=== PATIENT | male | born 1980 | race Two or more races ===

== ENCOUNTER 2022-12-08 09:27 | Emergency (ER) | payer MEDICAID ==
[~2022-12-08] VITALS: Ht 190.5 cm; Wt 101.0 kg
[2022-12-08 10:06] LABS: Urine Bacteria NONE SEEN /hpf (None Seen); Urine Blood Negative /uL (Negative); Urine WBC <1 /hpf (0 - 3)
[2022-12-08 10:12] LABS: Basophils # (auto) 0.1 10 ^3/uL (0-0.2); Basophils % (auto) 1.1 % (0.0-2.0); Eosinophils # (auto) 0.2 10 ^3/uL (0-0.8); Eosinophils % (auto) 3.4 % (0.0-7.0); Hematocrit 44.3 % (41.0-53.0); Lymphocytes # (auto) 2.5 10 ^3/uL (0.4-5.4); Lymphocytes % (auto) 38.8 % (10.0-50.0); Mean Corpuscular Hemoglobin 28.4 pg (28.0-32.0); Mean Corpuscular Hgb Conc. 33.9 g/dL (32.0-36.0); Mean Corpuscular Volume 83.8 fL (80.0-100.0); Monocytes # (auto) 0.3 10 ^3/uL (0-1.3); Monocytes % (auto) 4.5 % (0.0-12.0); Neutrophils # (auto) 3.3 10 ^3/uL (1.6-8.6); Neutrophils % (auto) 52.2 % (37.0-80.0); Nucleated Red Blood Cells % 0.3 %; Red Blood Cells 5.28 10^6/uL (4.5-5.90); Red Cell Distribution Width 15.1 % (11.8-14.3); White Blood Cell 6.4 10^3/uL (4.4-10.8)
[2022-12-08 10:50] LABS: Potassium 4.1 mmol/L (3.5-5.1)
[2022-12-08 10:59] LABS: Albumin 4.6 g/dL (3.4-5.0); BUN/Creatinine Ratio 9.6 (10.0-20.0); Bilirubin, Total 0.6 mg/dL (0.2-1.0); Calcium 9.2 mg/dL (8.5-10.1); Total Protein 7.7 g/dL (6.4-8.2)
[2022-12-08 11:46] VITALS: BP 119/87
[2022-12-08] MEDS ORDERED: MECL-126 PO (12:04)
== END 2022-12-08 12:12 | disposition home or self-care (01) ==
LOC: ER 09:27
DX: R42 Dizziness and giddiness (principal); F17.210 Nicotine dependence, cigarettes, uncomplicated
CPT/HCPCS: 36415; 71045; 80053; 81001; 84484; 85025; 93005

== ENCOUNTER 2023-01-02 19:08 | Emergency (ER) | payer MEDICAID ==
[~2023-01-02] VITALS: Ht 190.5 cm; Wt 109.1 kg
[~2023-01-02 19:08] MED LIST: MECL-126 PO
[2023-01-02 19:26] VITALS: BP 140/88
== END 2023-01-02 19:38 | disposition left against medical advice (07) ==
LOC: EDBD 19:08 → EDUNIT# 19:08 → ER 19:08
DX: R07.9 Chest pain, unspecified (principal); F17.210 Nicotine dependence, cigarettes, uncomplicated; Z79.899 Other long term (current) drug therapy

== ENCOUNTER 2023-01-07 09:38 | Inpatient (IN) | payer MEDICAID ==
[~2023-01-07] VITALS: Ht 190.5 cm; Wt 101.0 kg
[2023-01-07 10:00] LABS: Basophils # (auto) 0 10 ^3/uL (0-0.2); Basophils % (auto) 0.3 % (0.0-2.0); Eosinophils # (auto) 0.4 10 ^3/uL (0-0.8); Eosinophils % (auto) 7.7 % (0.0-7.0); Hematocrit 45.2 % (41.0-53.0); Hemoglobin 14.7 g/dL (13.5-17.5); Lymphocytes # (auto) 2.5 10 ^3/uL (0.4-5.4); Lymphocytes % (auto) 47.8 % (10.0-50.0); Mean Corpuscular Hemoglobin 27.6 pg (28.0-32.0); Mean Corpuscular Hgb Conc. 32.6 g/dL (32.0-36.0); Mean Corpuscular Volume 84.7 fL (80.0-100.0); Monocytes # (auto) 0.3 10 ^3/uL (0-1.3); Monocytes % (auto) 6.4 % (0.0-12.0); Neutrophils % (auto) 37.8 % (37.0-80.0); Nucleated Red Blood Cells % 0.2 %; Red Blood Cells 5.34 10^6/uL (4.5-5.90); Red Cell Distribution Width 15.5 % (11.8-14.3); White Blood Cell 5.2 10^3/uL (4.4-10.8)
[2023-01-07 10:14] LABS: INR 0.93 (0.9-1.15); Partial Thromboplastin Time 28.5 SEC (24.5-34.5)
[2023-01-07 10:20] LABS: Albumin 4.5 g/dL (3.4-5.0); Calcium 9.1 mg/dL (8.5-10.1); Magnesium 2.6 mg/dL (1.6-2.6); Potassium 4.3 mmol/L (3.5-5.1)
[2023-01-07 10:26] LABS: BUN/Creatinine Ratio 5.9 (10.0-20.0); Bilirubin, Total 0.7 mg/dL (0.2-1.0); Total Protein 7.3 g/dL (6.4-8.2)
[2023-01-07 10:40] LABS: Urine Bacteria NONE SEEN /hpf (None Seen); Urine Blood Negative /uL (Negative); Urine Mucus FEW (None Seen); Urine Specific Gravity 1.012 (1.001-1.035); Urine WBC <1 /hpf (0 - 3)
[2023-01-07] MEDS ORDERED: NITROGLYCERIN 0.4 MG SL TAB SL PRN (12:00)
[2023-01-07] MEDS ORDERED: MORPHINE SULFATE 4 MG/ML SYR/VIAL IV PRN (12:00)
[2023-01-07] MEDS ORDERED: ACETAMINOPHEN 325 MG TAB PO PRN (12:00)
[2023-01-07] MEDS ORDERED: ASPirin 325 MG TAB PO ONE (12:00)
[2023-01-07] MEDS ORDERED: ONDANSETRON HCL 4 MG/2 ML VIAL IV PRN (12:00)
[2023-01-07] MEDS ORDERED: NITROGLYCERIN 0.4 MG SL TAB SL ONE (12:00)
[2023-01-07] MEDS ORDERED: SODIUM CHLORIDE 0.9% 1,000 ML IV ONE ×2 (12:30)
[2023-01-07 13:25] LABS: Alcohol, Urine < 3.0 mg/dL (0-10); Amphetamine Screen, Urine NEGATIVE (NEGATIVE); Barbiturate Scree,Urine NEGATIVE (NEGATIVE); Benzodiazephine Screen, Urine NEGATIVE (NEGATIVE); Cannabinoid Screen, Urine POSITIVE (NEGATIVE); Cocaine Screen, Urine NEGATIVE (NEGATIVE)
[2023-01-07 13:32] LABS: Opiate Scree,Urine NEGATIVE (NEGATIVE); Phencyclidine Screen, Urine NEGATIVE (NEGATIVE)
[2023-01-07 17:40] VITALS: BP 124/78
[2023-01-07 18:00] VITALS: BP 133/89
[2023-01-07 22:00] VITALS: BP 110/73
[2023-01-07] MEDS ORDERED: ATORVASTATIN 20 MG TAB PO SCH (22:00)
[2023-01-08] MEDS ORDERED: IBUP-1454 PO (03:50)
[2023-01-08 05:00] VITALS: BP 109/70
[2023-01-08 06:19] LABS: Basophils # (auto) 0 10 ^3/uL (0-0.2); Basophils % (auto) 0.8 % (0.0-2.0); Eosinophils # (auto) 0.4 10 ^3/uL (0-0.8); Eosinophils % (auto) 6.6 % (0.0-7.0); Hematocrit 41.7 % (41.0-53.0); Lymphocytes # (auto) 2.3 10 ^3/uL (0.4-5.4); Lymphocytes % (auto) 36.9 % (10.0-50.0); Mean Corpuscular Hemoglobin 28.3 pg (28.0-32.0); Mean Corpuscular Hgb Conc. 33.6 g/dL (32.0-36.0); Mean Corpuscular Volume 84.1 fL (80.0-100.0); Monocytes # (auto) 0.4 10 ^3/uL (0-1.3); Monocytes % (auto) 5.9 % (0.0-12.0); Neutrophils # (auto) 3.1 10 ^3/uL (1.6-8.6); Neutrophils % (auto) 49.8 % (37.0-80.0); Nucleated Red Blood Cells % 0.1 %; Red Blood Cells 4.96 10^6/uL (4.5-5.90); Red Cell Distribution Width 15.3 % (11.8-14.3); White Blood Cell 6.2 10^3/uL (4.4-10.8)
[2023-01-08 06:36] LABS: Albumin 3.9 g/dL (3.4-5.0); BUN/Creatinine Ratio 9.4 (10.0-20.0); Bilirubin, Total 1.1 mg/dL (0.2-1.0); Calcium 8.7 mg/dL (8.5-10.1); Total Protein 6.8 g/dL (6.4-8.2)
[2023-01-08 09:05] VITALS: BP 119/79
[2023-01-08] MEDS ORDERED: LISINOPRIL 5 MG TAB PO SCH (10:00)
[2023-01-08] MEDS ORDERED: ASPirin 81 mg TAB PO SCH (10:00)
[2023-01-08] MEDS ORDERED: DOCUSATE SOD 100 MG CAP PO SCH (10:00)
[2023-01-08 12:30] VITALS: BP 116/82
[2023-01-08 16:38] VITALS: BP 133/87
[2023-01-08 17:05] VITALS: BP 116/82
== END 2023-01-08 18:00 | disposition home or self-care (01) | DRG 203 ==
LOC: ER 09:38 → TELE 12:03 → TELE-WESTW 17:32
PROVIDERS: ADMIT Internal Medicine Geriatric Medicine; ATTEND Internal Medicine Geriatric Medicine
DX: R07.89 Other chest pain (principal); E66.9 Obesity, unspecified; F17.210 Nicotine dependence, cigarettes, uncomplicated; Z71.6 Tobacco abuse counseling; Z68.27 Body mass index [BMI] 27.0-27.9, adult
CPT/HCPCS: 36415; 70450; 71045; 80053; 80307; 81001; 83735; 83880; 84484; 85025; 85610; 85730; 87081; 93005; 93306; 96360; G0378